=== PATIENT | male | born 1970 | race Two or more races ===

== ENCOUNTER 2016-04-07 15:28 | Inpatient (IN) | payer MEDICAID, OTHER ==
[~2016-04-07 15:28] MED LIST: ASPI325T2 PO; ISOS60TA4 PO; LISI1TAB9 PO; SIMV20TA6 PO; TRAM50TA2 PO
[2016-04-07] MEDS ORDERED: IV SET PRIMARY PUMP SET 1 EA INFUS.SET MC ONE ×4 (16:18→18:38)
[2016-04-07] MEDS ORDERED: IV NS 0.9% 500 ML IV ONE (16:18)
[2016-04-07] MEDS ORDERED: PANTOPRAZOLE 80 MG in IV NS 0.9% 100 ML IV ONE (16:30)
[2016-04-07] MEDS ORDERED: IV NS 0.9% 500 ML BAG IV ONE (16:30)
[2016-04-07] MEDS ORDERED: ESOM40CA PO (16:56)
[2016-04-07] MEDS ORDERED: ASPI81TA2 PO (16:56)
[2016-04-07] MEDS ORDERED: PANTOPRAZOLE 80 MG in IV NS 0.9% 500 ML IV ONE (17:00)
[2016-04-07] MEDS ORDERED: PANTOPRAZOLE 80 MG in IV NS 0.9% 500 ML IV SCH (17:30)
[2016-04-07] MEDS ORDERED: TRAMADOL HCL 50 MG TABLET PO PRN (17:30)
[2016-04-07] MEDS ORDERED: MAG HYDROX/AL HYDROX/SIMETH 30 ML UDC PO PRN (18:00)
[2016-04-07] MEDS ORDERED: ACETAMINOPHEN 325 MG TABLET PO PRN (18:00)
[2016-04-07] MEDS ORDERED: HYDROCODONE/APAP 5/325MG 1 EACH TABLET PO PRN (18:00)
[2016-04-07] MEDS ORDERED: Z GUARD REMEDY 2 OZ OINT TP PRN (18:00)
[2016-04-07] MEDS ORDERED: ONDANSETRON HCL/PF 4 MG/2 ML VIAL IVP PRN (18:00)
[2016-04-07] MEDS ORDERED: MAGNESIUM HYDROXIDE 30 ML UDC PO PRN (18:00)
[2016-04-07] MEDS: IV NS 0.9% 1,000 ML IV SCH (18:46)
[2016-04-07] MEDS ORDERED: IV NS 0.9% 250 ML IV ONE (19:30)
[2016-04-07] MEDS ORDERED: BLOOD IV SET 1 EA INFUS.SET MC ONE (19:30)
[2016-04-07] MEDS ORDERED: ZOLPIDEM TARTRATE 5 MG TABLET PO PRN (22:00)
[2016-04-08] MEDS: IV NS 0.9% 1,000 ML IV SCH ×3 (02:20→18:44)
[2016-04-08] MEDS: SIMVASTATIN 20 MG TABLET PO SCH (08:21)
[2016-04-08] MEDS: PANTOPRAZOLE 80 MG in IV NS 0.9% 500 ML IV PRN ×2 (08:42→20:58)
[2016-04-08] MEDS ORDERED: SOD FERRIC GLUC 125 MG in IV NS 0.9% 100 ML IV SCH (14:00)
[2016-04-08] MEDS ORDERED: IV SET PRIMARY PUMP SET 1 EA INFUS.SET MC ONE (16:01)
[2016-04-08] MEDS ORDERED: PEG 3350/NA SULF,BICARB,CL/KCL 4,000 ML BOTTLE PO ONE (18:00)
[2016-04-08] MEDS ORDERED: BLOOD IV SET 1 EA INFUS.SET MC ONE (20:38)
[2016-04-08] MEDS ORDERED: IV NS 0.9% 250 ML IV ONE (20:38)
[2016-04-09] MEDS: IV NS 0.9% 1,000 ML IV SCH ×2 (03:59→12:38)
[2016-04-09] MEDS ORDERED: diphenhydrAMINE HCL 50 MG/ML VIAL ONE (04:18)
[2016-04-09] MEDS ORDERED: diphenhydrAMINE HCL 50 MG/ML VIAL IV ONE (04:30)
[2016-04-09] MEDS: SIMVASTATIN 20 MG TABLET PO SCH (09:00)
[2016-04-09] MEDS ORDERED: SIMETHICONE SUSP 40 MG/0.6 ML BOTTLE ONE (10:49)
== END 2016-04-09 15:18 | disposition home or self-care (01) | DRG 241 ==
DX: K29.71 Gastritis, unspecified, with bleeding (principal); D62 Acute posthemorrhagic anemia; I10 Essential (primary) hypertension; K92.1 Melena; E78.5 Hyperlipidemia, unspecified; T39.395A Adverse effect of other nonsteroidal anti-inflammatory drugs [NSAID], initial encounter; Y92.9 Unspecified place or not applicable; D50.9 Iron deficiency anemia, unspecified; R00.0 Tachycardia, unspecified; K44.9 Diaphragmatic hernia without obstruction or gangrene

== ENCOUNTER 2017-07-08 20:33 | Inpatient (IN) | payer MEDICAID ==
[~2017-07-08] VITALS: Ht 182.9 cm; Wt 99.8 kg
[~2017-07-08 20:33] MED LIST changes: -ASPI325T2 PO; +ESOM40CA PO; -ISOS60TA4 PO
[2017-07-08] MEDS ORDERED: PANTOPRAZOLE 40 MG VIAL ONE (20:50)
[2017-07-08] MEDS ORDERED: LORAZEPAM INJ 2 MG/ML VIAL ONE (20:54)
[2017-07-08] MEDS ORDERED: LORAZEPAM INJ 2 MG/ML VIAL IV ONE (21:00)
[2017-07-08] MEDS ORDERED: IV NS 0.9% 1,000 ML BAG IV ONE (21:00)
[2017-07-08] MEDS ORDERED: PANTOPRAZOLE 40 MG VIAL IV ONE (21:00)
[2017-07-08 21:18] LABS: BASOPHILS # (AUTO) 0.4 /CMM (0.0-0.2); BASOPHILS % (AUTO) 3.3 % (0.0-2.0); EOSINOPHILS % (AUTO) 0.1 % (0.0-6.0); HEMATOCRIT 41 % (39-51); HEMOGLOBIN 14.3 g/dL (13.5-17.5); LYMPHOCYTES # (AUTO) 0.9 /CMM (0.8-4.8); LYMPHOCYTES % (AUTO) 7.4 % (20.0-44.0); MEAN CORPUSCULAR HEMOGLOBIN 29 PG (26.0-33.0); MEAN CORPUSCULAR HGB CONC 35 g/dl (31.0-36.0); MEAN CORPUSCULAR VOLUME 82 fL (80-96); MONOCYTES # (AUTO) 0.5 /CMM (0.1-1.30); MONOCYTES % (AUTO) 4.4 % (2.0-12.0); NEUTROPHILS % (AUTO) 84.8 % (43.0-81.0); PLATELET COUNT (AUTO) 218 /CMM (150-450); RDW COEFFICIENT OF VARIATION 12.1 (11.5-15.0); RED BLOOD CELL COUNT(AUTO) 4.98 MIL/uL (4.5-6.0); WHITE BLOOD COUNT (AUTO) 11.8 K/uL (4.3-11.0)
[2017-07-08 21:28] LABS: CALCIUM, SERUM 8.6 mg/dL (8.5-10.1); CARBON DIOXIDE 27 mmol/L (21-32); CHLORIDE 98 mmol/L (98-107); CREATININE 1.2 mg/dL (0.6-1.3); GLUCOSE 116 mg/dL (74-106); POTASSIUM 4.2 mmol/L (3.5-5.1); SODIUM SERUM 136 mmol/L (136-145); UREA NITROGEN, BLOOD 22 mg/dL (7-18)
[2017-07-08 21:32] LABS: INR 1.03 (0.85-1.15)
[2017-07-08 21:34] LABS: ALANINE AMINOTRANSFERASE 52 U/L (12-78); ALBUMIN 4.3 g/dL (3.4-5.0); ALKALINE PHOSPHATASE 65 U/L (46-116); ASPARTATE AMINOTRANSFERASE 22 U/L (15-37); BILIRUBIN,DIRECT 0.1 mg/dL (0.0-0.2); BILIRUBIN,TOTAL 0.4 mg/dL (0.2-1.0); LIPASE 153 U/L (73-393); TOTAL PROTEIN, SERUM 7.8 g/dL (6.4-8.2)
[2017-07-08 21:36] LABS: TROPONIN I < 0.017 ng/mL (0.00-0.056)
[2017-07-08 21:37] LABS: ACETAMINOPHEN < 10 ug/ml (10-30); ALCOHOL, BLOOD < 3 mg/dL (0-0); SALICYLATE 1.1 mg/dL (2.8-20.0)
[2017-07-08 22:30] LABS: APPEARANCE,URINE CLEAR (CLEAR); BILIRUBIN,URINE NEGATIVE (NEGATIVE); BLOOD, URINE NEGATIVE Ery/uL (NEGATIVE); COLOR,URINE YELLOW (YELLOW); KETONES,URINE TRACE (NEGATIVE); LEUKOCYTE ESTERASE ,URINE NEGATIVE (NEGATIVE); NITRITE, URINE NEGATIVE (NEGATIVE); PROTEIN,URINE TRACE mg/dl (NEGATIVE); UGLUCOSE NEGATIVE (NEGATIVE); UROBILINOGEN,URINE 0.2 EU/dL (0.2)
[2017-07-08 22:48] LABS: BACTERIA,URINE None seen /HPF (None Seen); RBC,URINE NONE SEEN /HPF (0-2); SQUAMOUS EPITHELIAL CELL,UR Few /HPF (None Seen); WBC,URINE 0-2 /HPF (0-3)
[2017-07-09] MEDS ORDERED: HYDROMORPHONE INJ 2 MG/ML DISP.SYRIN IV PRN (00:30)
[2017-07-09] MEDS ORDERED: ONDANSETRON HCL/PF 4 MG/2 ML VIAL IV PRN (00:30)
[2017-07-09] MEDS ORDERED: LORAZEPAM INJ 2 MG/ML VIAL IV PRN (00:30)
[2017-07-09 00:33] VITALS: BP 163/96
[2017-07-09] MEDS: PANTOPRAZOLE 40 MG VIAL IV SCH ×3 (01:13→21:50)
[2017-07-09] MEDS: IV 1/2NS 1000 ML 1,000 ML IV PRN ×3 (01:14→21:50)
[2017-07-09 03:34] LABS: BASOPHILS # (AUTO) 0.1 /CMM (0.0-0.2); BASOPHILS % (AUTO) 0.9 % (0.0-2.0); EOSINOPHILS % (AUTO) 0.1 % (0.0-6.0); HEMATOCRIT 40 % (39-51); HEMOGLOBIN 13.5 g/dL (13.5-17.5); LYMPHOCYTES # (AUTO) 1.2 /CMM (0.8-4.8); LYMPHOCYTES % (AUTO) 8.4 % (20.0-44.0); MEAN CORPUSCULAR HEMOGLOBIN 28 PG (26.0-33.0); MEAN CORPUSCULAR HGB CONC 34 g/dl (31.0-36.0); MEAN CORPUSCULAR VOLUME 84 fL (80-96); MONOCYTES # (AUTO) 0.5 /CMM (0.1-1.30); MONOCYTES % (AUTO) 3.8 % (2.0-12.0); NEUTROPHILS % (AUTO) 86.8 % (43.0-81.0); PLATELET COUNT (AUTO) 187 /CMM (150-450); RDW COEFFICIENT OF VARIATION 13.3 (11.5-15.0); RED BLOOD CELL COUNT(AUTO) 4.77 MIL/uL (4.5-6.0); WHITE BLOOD COUNT (AUTO) 13.9 K/uL (4.3-11.0)
[2017-07-09 04:00] VITALS: BP 147/100
[2017-07-09 04:10] LABS: CALCIUM, SERUM 8.5 mg/dL (8.5-10.1); POTASSIUM 4.5 mmol/L (3.5-5.1)
[2017-07-09] MEDS ORDERED: MIRT15TA7 PO (07:15)
[2017-07-09] MEDS ORDERED: PANT40TA2 PO (07:15)
[2017-07-09] MEDS ORDERED: FERR325T23 PO (07:15)
[2017-07-09] MEDS ORDERED: ESCI20TA PO (07:15)
[2017-07-09] MEDS ORDERED: LORA0.5T PO (07:15)
[2017-07-09 08:00] VITALS: BP 163/102
[2017-07-09] MEDS ORDERED: hydrALAZINE HCL IV 20 MG VIAL IV PRN (09:30)
[2017-07-09] MEDS: PIPERACILLIN /TAZOBACTAM 3.375 G in IV D5W 50 ML IV SCH ×3 (11:34→23:37)
[2017-07-09 12:00] VITALS: BP 160/97
[2017-07-09 16:00] VITALS: BP 153/93
[2017-07-09 20:00] VITALS: BP 149/95
[2017-07-10] VITALS: BP_SYST 147; BP_SYST 149; BP_DIAS 89
[2017-07-10 04:00] VITALS: BP 154/90
[2017-07-10] MEDS: PIPERACILLIN /TAZOBACTAM 3.375 G in IV D5W 50 ML IV SCH ×4 (05:27→23:24)
[2017-07-10 07:06] LABS: BASOPHILS # (AUTO) 0.1 /CMM (0.0-0.2); BASOPHILS % (AUTO) 0.9 % (0.0-2.0); EOSINOPHILS % (AUTO) 0.6 % (0.0-6.0); HEMATOCRIT 40 % (39-51); HEMOGLOBIN 13.6 g/dL (13.5-17.5); LYMPHOCYTES # (AUTO) 1.9 /CMM (0.8-4.8); LYMPHOCYTES % (AUTO) 22.2 % (20.0-44.0); MEAN CORPUSCULAR HEMOGLOBIN 28 PG (26.0-33.0); MEAN CORPUSCULAR HGB CONC 34 g/dl (31.0-36.0); MEAN CORPUSCULAR VOLUME 83 fL (80-96); MONOCYTES # (AUTO) 0.8 /CMM (0.1-1.30); MONOCYTES % (AUTO) 9.6 % (2.0-12.0); NEUTROPHILS # (AUTO) 5.8 /CMM (1.8-8.9); NEUTROPHILS % (AUTO) 66.7 % (43.0-81.0); PLATELET COUNT (AUTO) 179 /CMM (150-450); RDW COEFFICIENT OF VARIATION 13.5 (11.5-15.0); RED BLOOD CELL COUNT(AUTO) 4.85 MIL/uL (4.5-6.0); WHITE BLOOD COUNT (AUTO) 8.6 K/uL (4.3-11.0)
[2017-07-10 07:07] LABS: CALCIUM, SERUM 8.8 mg/dL (8.5-10.1); CREATININE 1.3 mg/dL (0.6-1.3); POTASSIUM 3.8 mmol/L (3.5-5.1)
[2017-07-10 08:00] VITALS: BP 151/87
[2017-07-10] MEDS ORDERED: LEVO500T75 PO (08:17)
[2017-07-10] MEDS: PANTOPRAZOLE 40 MG VIAL IV SCH ×2 (08:28→21:21)
[2017-07-10] MEDS ORDERED: AMLO2.5T2 PO (08:36)
[2017-07-10] MEDS: AMLODIPINE BESYLATE 2.5 MG TABLET PO SCH (10:15)
[2017-07-10 16:00] VITALS: BP 139/86
[2017-07-10] MEDS: IV 1/2NS 1000 ML 1,000 ML IV PRN (16:29)
[2017-07-10 20:00] VITALS: BP 137/83
[2017-07-11 04:00] VITALS: BP 151/93
[2017-07-11] MEDS: IV 1/2NS 1000 ML 1,000 ML IV PRN (04:07)
[2017-07-11] MEDS: PIPERACILLIN /TAZOBACTAM 3.375 G in IV D5W 50 ML IV SCH (05:53)
[2017-07-11 08:00] VITALS: BP 132/76
[2017-07-11 08:36] VITALS: BP 132/76
[2017-07-11] MEDS: AMLODIPINE BESYLATE 2.5 MG TABLET PO SCH (08:36)
[2017-07-11] MEDS: PANTOPRAZOLE 40 MG VIAL IV SCH (08:36)
== END 2017-07-11 09:59 | disposition home or self-care (01) | DRG 137 ==
LOC: ER 20:35 → TELE-TD 23:13 → MEDSG1 07-10 09:13
PROVIDERS: ADMIT Internal Medicine; ATTEND Internal Medicine
DX: J69.0 Pneumonitis due to inhalation of food and vomit (principal); G92 Toxic encephalopathy; K29.71 Gastritis, unspecified, with bleeding; K21.9 Gastro-esophageal reflux disease without esophagitis; E78.5 Hyperlipidemia, unspecified; I10 Essential (primary) hypertension; F41.9 Anxiety disorder, unspecified; F32.9 Major depressive disorder, single episode, unspecified; F12.90 Cannabis use, unspecified, uncomplicated
CPT/HCPCS: 36415; 36600; 70450-TC; 71045-TC; 80048-TC; 80076-TC; 80305; 81000-TC; 82140-TC; 82803-TC; 82962-TC; 83690-TC; 84484-TC; 85025-TC; 85730-TC; 86850-TC; 87081-TC; A4606; C9113; G0480; J0360; J2060; J2543; J3490; J7030; J7060; Z7610

== ENCOUNTER 2021-05-27 07:52 | Emergency (ER) | payer MEDICAID ==
[~2021-05-27] VITALS: Ht 182.9 cm; Wt 97.5 kg
[~2021-05-27 07:52] MED LIST changes: +AMLO2.5T2 PO; +ESCI20TA PO; -ESOM40CA PO; +LEVO500T23 PO; -LISI1TAB9 PO; +LORA0.5T PO; +MIRT-90 PO; +PANT40TA2 PO; -SIMV20TA6 PO; -TRAM50TA2 PO
--- NOTE | 2021-05-27 08:09 | NUR ---
CAME HERE FOR EVAL AND TREATMENT OF RIGHT SIDED ABDOMINAL PAIN X 3 DAYS,DENIES OTHER ACCOMPANYING SYMPTOM.TO ER BED 12 AWAITING MD ORDOÑEZ
[2021-05-27] MEDS ORDERED: IV NS 0.9% 1,000 ML BAG IV ONE ×2 (08:30→15:00)
--- NOTE | 2021-05-27 08:40 | NUR ---
SALINE LOCK ESTABLISHED, BLOOD DRAWN AND SENT TO LAB
--- NOTE | 2021-05-27 08:45 | NUR ---
URINE COLLECTED AND SENT TO LAB
[2021-05-27 08:47] LABS: BASOPHILS # (AUTO) 0.2 K/uL (0.0-0.2); BASOPHILS % (AUTO) 3.7 % (0.0-2.0); EOSINOPHILS % (AUTO) 3.9 % (0.0-6.0); HEMATOCRIT 43 % (39-51); HEMOGLOBIN 14.8 g/dL (13.5-17.5); LYMPHOCYTES # (AUTO) 2.1 K/uL (0.8-4.8); LYMPHOCYTES % (AUTO) 42.4 % (20.0-44.0); MEAN CORPUSCULAR HGB CONC 34 g/dl (31.0-36.0); MEAN CORPUSCULAR VOLUME 85 fL (80-96); MONOCYTES # (AUTO) 0.5 K/uL (0.1-1.30); MONOCYTES % (AUTO) 9.4 % (2.0-12.0); NEUTROPHILS % (AUTO) 40.6 % (43.0-81.0); PLATELET COUNT (AUTO) 166 K/uL (150-450); RED BLOOD CELL COUNT(AUTO) 5.05 MIL/uL (4.5-6.0); WHITE BLOOD COUNT (AUTO) 4.9 K/uL (4.3-11.0)
--- NOTE | 2021-05-27 08:48 | NUR ---
TAKEN TO CT
[2021-05-27 09:39] LABS: BILIRUBIN,URINE NEGATIVE (NEGATIVE); COLOR,URINE YELLOW (YELLOW); LEUKOCYTE ESTERASE ,URINE NEGATIVE (NEGATIVE); NITRITE, URINE NEGATIVE (NEGATIVE); PROTEIN,URINE NEGATIVE (NEGATIVE); UGLUCOSE NEGATIVE (NEGATIVE); UROBILINOGEN,URINE 0.2 EU/dL (0.2)
[2021-05-27 09:50] LABS: CALCIUM, SERUM 8.6 mg/dL (8.5-10.1); CREATININE 1.1 mg/dL (0.6-1.3); POTASSIUM 3.8 mmol/L (3.5-5.1)
--- NOTE | 2021-05-27 09:52 | NUR ---
FOLLOWED CHEMISTRY RESULT, SPOKE TO ALIA
[2021-05-27 09:55] LABS: ALBUMIN 3.9 g/dL (3.4-5.0); BILIRUBIN,DIRECT 0.1 mg/dL (0.0-0.2); BILIRUBIN,TOTAL 0.3 mg/dL (0.2-1.0); TOTAL PROTEIN, SERUM 6.6 g/dL (6.4-8.2)
--- NOTE | 2021-05-27 10:55 | NUR ---
PAGED DR. LEAHY
[2021-05-27] MEDS ORDERED: MORPHINE SULFATE INJ 2 MG/ML DISP.SYRIN IV ONE ×2 (11:00→14:30)
[2021-05-27] MEDS ORDERED: MORPHINE SULFATE INJ 4 MG/ML DISP.SYRIN ONE ×2 (11:13→14:30)
[2021-05-27] MEDS ORDERED: CALCIUM CHLORIDE 1,000 MG/10 ML DISP.SYRIN IV ONE (11:30)
[2021-05-27] MEDS ORDERED: SODIUM BICARBONATE SYR 50 MEQ/50 ML DISP.SYRIN IV ONE (11:30)
[2021-05-27] MEDS ORDERED: DEXTROSE 50%-WATER 50 ML DISP.SYRIN IV ONE (11:30)
[2021-05-27] MEDS ORDERED: INSULIN REGULAR, HUMAN 100 UNIT/ML 10 ML VIAL IV ONE (11:30)
[2021-05-27] MEDS ORDERED: SODIUM POLYSTYRENE SULFONATE 15 G/60 ML BOTTLE PO ONE (11:30)
--- NOTE | 2021-05-27 13:13 | NUR ---
RECIEVED A CALL FROM FILIBERTO HESS CM. REQUESTING CLINICALS AND STABLE FOR TRANSFER NOTE FROM . CALL BACK NUMBER IS [phone].
[2021-05-27 17:02] VITALS: BP 143/98
--- NOTE | 2021-05-27 17:02 | NUR ---
IV removed. Catheter intact and site benign. Pressure and 4x4 applied to site. No bleeding noted.Patient does not wish to proceed with medical care recommended by Dr. Renee. Patient given information related to possible complications, up to and including , which could occur as a result of leaving the hospital at this time. Patient verbalizes understanding of risks involved due to leaving against medical advice. Patient has signed AMA form.
== END 2021-05-27 17:03 | disposition home or self-care (01) ==
LOC: ER 08:03
DX: R10.31 Right lower quadrant pain (principal); I10 Essential (primary) hypertension; K21.9 Gastro-esophageal reflux disease without esophagitis; Z79.899 Other long term (current) drug therapy
CPT/HCPCS: 36415; 74176; 80048; 80076; 81003; 85025; 87086; 96361; 96374; 96376; 99285; J2270 ×2; J7030 ×2

== ENCOUNTER 2023-02-22 23:38 | Inpatient (IN) | payer MEDICAID, OTHER ==
[~2023-02-22] VITALS: Ht 182.9 cm; Wt 93.0 kg
[2023-02-23] MEDS: MORPHINE SULFATE INJ 2 MG/ML DISP.SYRIN IV ONE ×2 (01:35→04:38)
[2023-02-23] MEDS ORDERED: MORPHINE SULFATE INJ 4 MG/ML DISP.SYRIN ONE ×2 (01:35→04:37)
[2023-02-23] MEDS ORDERED: ONDANSETRON HCL/PF 4 MG/2 ML VIAL ONE ×2 (01:35→04:37)
[2023-02-23 01:36] LABS: APPEARANCE,URINE CLEAR (CLEAR); BILIRUBIN,URINE NEGATIVE (NEGATIVE); BLOOD, URINE NEGATIVE Ery/uL (NEGATIVE); COLOR,URINE YELLOW (YELLOW); KETONES,URINE TRACE mg/dL (NEGATIVE); LEUKOCYTE ESTERASE ,URINE NEGATIVE (NEGATIVE); NITRITE, URINE NEGATIVE (NEGATIVE); PH,URINE 5.5 (5.0-8.0); PROTEIN,URINE NEGATIVE (NEGATIVE); UGLUCOSE NEGATIVE (NEGATIVE); UROBILINOGEN,URINE 0.2 EU/dL (0.2)
[2023-02-23] MEDS: ONDANSETRON HCL/PF 4 MG/2 ML VIAL IVP ONE (01:36)
[2023-02-23] MEDS: IV NS 0.9% 1,000 ML BAG IV ONE (01:36)
[2023-02-23 01:40] LABS: BASOPHILS # (AUTO) 0.1 K/uL (0.0-0.2); BASOPHILS % (AUTO) 0.9 % (0.0-2.0); EOSINOPHILS # (AUTO) 0.1 K/uL (0.0-0.7); EOSINOPHILS % (AUTO) 0.9 % (0.0-6.0); HEMATOCRIT 46 % (39-51); HEMOGLOBIN 15.5 g/dL (13.5-17.5); LYMPHOCYTES # (AUTO) 1.7 K/uL (0.8-4.8); LYMPHOCYTES % (AUTO) 19.1 % (20.0-44.0); MEAN CORPUSCULAR HEMOGLOBIN 29 PG (26.0-33.0); MEAN CORPUSCULAR HGB CONC 34 g/dl (31.0-36.0); MEAN CORPUSCULAR VOLUME 87 fL (80-96); MONOCYTES # (AUTO) 0.6 K/uL (0.1-1.30); MONOCYTES % (AUTO) 7.1 % (2.0-12.0); NEUTROPHILS # (AUTO) 6.3 K/uL (1.8-8.9); PLATELET COUNT (AUTO) 175 K/uL (150-450); RED BLOOD CELL COUNT(AUTO) 5.32 MIL/uL (4.5-6.0); WHITE BLOOD COUNT (AUTO) 8.7 K/uL (4.3-11.0)
[2023-02-23 01:45] LABS: ALANINE AMINOTRANSFERASE 37 U/L (12-78); ALKALINE PHOSPHATASE 70 U/L (46-116); ASPARTATE AMINOTRANSFERASE 21 U/L (15-37); BILIRUBIN,DIRECT 0.1 mg/dL (0.0-0.2); BILIRUBIN,TOTAL 0.3 mg/dL (0.2-1.0); CALCIUM, SERUM 9.4 mg/dL (8.5-10.1); CARBON DIOXIDE 35 mmol/L (21-32); CHLORIDE 100 mmol/L (98-107); CREATININE 1.2 mg/dL (0.6-1.3); GLUCOSE 115 mg/dL (74-106); LIPASE 34 U/L (16-77); POTASSIUM 3.5 mmol/L (3.5-5.1); SODIUM SERUM 139 mmol/L (136-145); TOTAL PROTEIN, SERUM 7.2 g/dL (6.4-8.2); UREA NITROGEN, BLOOD 15 mg/dL (7-18)
[2023-02-23 01:46] LABS: INR 0.98 (0.91-1.10); PARTIAL THROMBOPLASTIN TIME 26.1 SEC (24.3-34.3); PROTHROMBIN TIME 10.4 SECS (9.2-11.1)
[2023-02-23] MEDS: ONDANSETRON HCL/PF - ER 4 MG/2 ML VIAL IV ONE (04:38)
[2023-02-23] MEDS ORDERED: DIATR MEGLU/DIATRIZOATE SODIUM 30 ML BOTTLE (GASTROGRAPHIN) ONE (05:58)
[2023-02-23 08:30] VITALS: BP 145/108; TEMP 98.8; O2SAT 95
[2023-02-23] MEDS ORDERED: HYDR25TA4 PO (08:53)
[2023-02-23] MEDS ORDERED: LOSA50TA39 PO (08:53)
[2023-02-23] MEDS ORDERED: CHOL100043 PO (08:53)
[2023-02-23] MEDS ORDERED: SIMV-49 PO (08:53)
[2023-02-23 09:05] VITALS: O2SAT 95
[2023-02-23] MEDS ORDERED: DIATR MEGLU/DIATRIZOATE SODIUM 120 ML BOTTLE (GASTROGRAPHIN) ONE (10:15)
[2023-02-23] MEDS: IV D5/0.45 NACL 1,000 ML IV PRN (13:27)
[2023-02-23] MEDS: MORPHINE SULFATE INJ 2 MG/ML DISP.SYRIN IV PRN ×2 (13:43→23:28)
[2023-02-23 16:00] VITALS: BP 155/101; TEMP 98.7; O2SAT 95
[2023-02-23] MEDS: ONDANSETRON HCL/PF 4 MG/2 ML VIAL IV PRN (17:26)
[2023-02-23 20:00] VITALS: BP 158/105; TEMP 98.8; O2SAT 90
[2023-02-24] VITALS: BP 140/80; TEMP 98.5; O2SAT 92
[2023-02-24 04:00] VITALS: BP 122/68; TEMP 98.5; O2SAT 90
[2023-02-24 06:55] LABS: BASOPHILS % (AUTO) 0.7 % (0.0-2.0); EOSINOPHILS % (AUTO) 0.4 % (0.0-6.0); HEMATOCRIT 45 % (39-51); HEMOGLOBIN 15.1 g/dL (13.5-17.5); LYMPHOCYTES # (AUTO) 1.1 K/uL (0.8-4.8); LYMPHOCYTES % (AUTO) 18.1 % (20.0-44.0); MEAN CORPUSCULAR HEMOGLOBIN 29 PG (26.0-33.0); MEAN CORPUSCULAR HGB CONC 34 g/dl (31.0-36.0); MEAN CORPUSCULAR VOLUME 87 fL (80-96); MONOCYTES # (AUTO) 0.6 K/uL (0.1-1.30); NEUTROPHILS # (AUTO) 4.4 K/uL (1.8-8.9); NEUTROPHILS % (AUTO) 71.8 % (43.0-81.0); PLATELET COUNT (AUTO) 174 K/uL (150-450); RED BLOOD CELL COUNT(AUTO) 5.15 MIL/uL (4.5-6.0); RED CELL DISTRIBUTION WIDTH 14.2 % (11.5-15.0); WHITE BLOOD COUNT (AUTO) 6.1 K/uL (4.3-11.0)
[2023-02-24 07:16] LABS: CALCIUM, SERUM 8.7 mg/dL (8.5-10.1); CREATININE 1.1 mg/dL (0.6-1.3); POTASSIUM 3.7 mmol/L (3.5-5.1)
[2023-02-24 08:00] VITALS: BP 151/89; TEMP 98.2; O2SAT 95
[2023-02-24 09:02] VITALS: BP 151/89
[2023-02-24] MEDS: hydrALAZINE HCL IV 20 MG VIAL IV PRN (09:02)
[2023-02-24] MEDS: HYDROCODONE/APAP 5/325MG TABLET PO PRN (13:10)
== END 2023-02-24 16:45 | disposition home or self-care (01) | DRG 390 ==
LOC: ER 23:44 → TELE 02-23 09:06
PROVIDERS: ADMIT Internal Medicine; ATTEND Internal Medicine
DX: K56.609 Unspecified intestinal obstruction, unspecified as to partial versus complete obstruction (principal); K44.9 Diaphragmatic hernia without obstruction or gangrene; I10 Essential (primary) hypertension; E78.5 Hyperlipidemia, unspecified; Z79.899 Other long term (current) drug therapy; Z82.49 Family history of ischemic heart disease and other diseases of the circulatory system; Z87.891 Personal history of nicotine dependence; K21.9 Gastro-esophageal reflux disease without esophagitis
CPT/HCPCS: 36415; 71045-TC; 74018; 74250-TC; 80048-TC; 80076-TC; 83690-TC; 83735-TC; 84484-TC; 85025-TC; 85730-TC; A4223; G0378; J0360; J2270; J2405; J3490; Q9963

== ENCOUNTER 2024-11-02 09:37 | Emergency (ER) | payer OTHER ==
[~2024-11-02] VITALS: Ht 182.9 cm; Wt 102.1 kg
[~2024-11-02 09:37] MED LIST changes: -AMLO2.5T2 PO; +CHOL100043 PO; -ESCI20TA PO; +HYDR25TA4 PO; -LEVO500T23 PO; -LORA0.5T PO; +LOSA50TA39 PO; -MIRT-90 PO; -PANT40TA2 PO; +SIMV-49 PO
[2024-11-02 09:49] VITALS: TEMP 98
[2024-11-02 10:10] LABS: PLATELET COUNT (AUTO) 162 K/uL (150-450); RED BLOOD CELL COUNT(AUTO) 5.23 MIL/uL (4.5-6.0); RED CELL DISTRIBUTION WIDTH 14.0 % (11.5-15.0); WHITE BLOOD COUNT (AUTO) 4.2 K/uL (4.3-11.0)
[2024-11-02 10:30] LABS: CALCIUM, SERUM 9.1 mg/dL (8.5-10.1); CREATININE 1.3 mg/dL (0.6-1.3); SODIUM SERUM 139 mmol/L (136-145); UREA NITROGEN, BLOOD 23 mg/dL (7-18)
[2024-11-02 13:03] VITALS: BP 138/87; O2SAT 95
== END 2024-11-02 13:01 | disposition home or self-care (01) ==
LOC: ER 09:50
DX: R07.89 Other chest pain (principal); E78.5 Hyperlipidemia, unspecified; I10 Essential (primary) hypertension; Z79.899 Other long term (current) drug therapy; Z86.79 Personal history of other diseases of the circulatory system
CPT/HCPCS: 36415; 71045-TC; 80048-TC; 84484-TC; 85025-TC; 85378-TC